=== PATIENT | female | born 1940 | race Caucasian/White ===

== ENCOUNTER 2018-05-20 22:59 | Observation (INO) ==
[2018-05-20] MEDS ORDERED: NS 1,000 ML IV ONE (23:05)
[2018-05-20 23:40] LABS: BASO# 0.13 X1000 (0.0-0.2); BASO% 1.6 % (0.0-0.8); EOS# 0.26 X1000 (0.0-0.7); EOS% 3.2 % (0.0-10.0); HEMATOCRIT 38.8 % (37.0-47.0); HEMOGLOBIN 12.8 g/dL (12.0-16.0); LYMPH# 3.26 X1000 (1.2-3.4); LYMPH% 40.2 % (20.5-51.1); MCH 30.3 PG (27-31); MCV 91.9 FL (81-99); MONO% 9.9 % (1.7-9.3); MPV 11.5 FL (7.4-10.4); NEUT# 3.66 X1000 (1.4-6.5); NEUT% 45.1 % (42.2-75.2); PLT 298 X1000 (130-400); RBC 4.22 XMIL (4.2-5.4); RDW 12.5 % (11.5-14.5); WBC 8.11 X1000 (4.8-10.8)
[2018-05-21 00:12] LABS: BILIRUBIN URINE NEGATIVE (NEGATIVE); BLOOD URINE NEGATIVE (NEGATIVE); CLARITY CLEAR (CLEAR); COLOR YELLOW; GLUCOSE URINE NEGATIVE (NEGATIVE); KETONE URINE NEGATIVE (NEGATIVE); LEUKOCYTES URINE TRACE (NEGATIVE); NITRITE URINE NEGATIVE (NEGATIVE); PROTEIN URINE NEGATIVE (NEGATIVE); SP GRAVITY URINE 1.015; UROBILINOGEN URINE NORMAL
[2018-05-21 00:13] LABS: CALCIUM 9.7 mg/dL (8.8-10.2); CREATININE 1.3 mg/dL (0.5-0.9); POTASSIUM 4.8 mmol/L (3.5-5.1)
[2018-05-21 00:15] LABS: UR AMPHETAMINES QUAL NONE DETECTED (NONE DETECT); UR BARBITUATES QUAL NONE DETECTED (NONE DETECT); UR BENZODIAZEPIN QUAL NONE DETECTED (NONE DETECT); UR CANNABINOIDS QUAL NONE DETECTED (NONE DETECT); UR COCAINE QUAL NONE DETECTED (NONE DETECT); UR METHADONE QUAL NONE DETECTED (NONE DETECT); UR METHAMPHETAMINE QUAL NONE DETECTED (NONE DETECT); UR OPIATES QUAL PRESUMPTIVE POSITIVE (NONE DETECT); UR OXYCODONE QUAL NONE DETECTED (NONE DETECT); UR PCP QUAL NONE DETECTED (NONE DETECT); UR PROPOXYPHENE QUAL NONE DETECTED (NONE DETECT); UR TCA QUAL NONE DETECTED (NONE DETECT)
[2018-05-21 00:18] LABS: URINE BACTERIA 2+ /HFP; URINE EPITHELIAL CELLS <10 /HPF (<10); URINE WBC <10 /HPF (<10)
[2018-05-21 00:19] LABS: URINE SOURCE CLEAN CATCH
--- NOTE | 2018-05-21 01:44 | EKG Report ---
Test Performed on : 05/21/2018 00:16:35 AM Test Reason : AMS Blood Pressure : / mmHG Vent. Rate : 069 BPM Atrial Rate : 069 BPM P-R Int : 154 ms QRS Dur : 092 ms QT Int : 414 ms P-R-T Axes : 072 043 -30 degrees QTc Int : 443 ms Normal sinus rhythm. Minimal voltage criteria for LVH, may be normal variant T wave abnormality, consider inferior ischemia Abnormal ECG When compared with ECG of 08-APR-2018 06:53, No significant change was found Unconfirmed Result
[2018-05-21] MEDS ORDERED: ZOFRAN IV PRN (01:51)
[2018-05-21] MEDS ORDERED: NS 1,000 ML IV ONE ×2 (01:51→15:28)
--- NOTE | 2018-05-21 01:59 | PROVIDER DOCUMENTATION ---
This chart was entered by Anthony Pederson Scribe, acting as scribe for Gail Mancilla MD. HPI-General Adult - General Stated Complaint: AMS Time Seen by Provider: 05/20/18 23:03 Source: EMS Unable to obtain history due to:: altered Allergies/Adverse Reactions: Patient Allergies Allergy/AdvReac Type Severity Reaction Status Date / Time No Known Allergies Allergy Verified 05/20/18 23:29 Home Medications: Home Medication List Medication Instructions Recorded Confirmed Last Taken Type Citalopram [Celexa] 20 mg PO DAILY 12/21/16 05/20/18 04/06/18 History Montelukast [Singulair] 10 mg PO DAILY 12/21/16 05/20/18 04/06/18 History Aspirin [Aspir-Low] 81 mg PO DAILY 04/07/18 05/20/18 04/07/18 History Bisoprolol [Zebeta] 5 mg PO DAILY 04/07/18 05/20/18 04/06/18 History Lamotrigine [Lamictal] 150 mg PO DAILY 04/07/18 05/20/18 04/06/18 History Losartan [Cozaar] 50 mg PO DAILY 04/07/18 05/20/18 04/06/18 History Pregabalin [Lyrica] 75 mg PO DAILY 04/07/18 05/20/18 04/06/18 History Amantadine HCl [Amantadine] 1 tab PO DAILY 05/20/18 05/20/18 Unknown History Hydrocodone Bit/Acetaminophen 1 tab PO TID 05/20/18 05/20/18 Unknown History [Hydrocodon-Acetaminophn 10-325] - History of Present Illness -Gen Adult Nature of Presenting Problems: EMS reports a call came out from a neighbor of pt that the pt is more confused than normal. EMS reports a smell of weed from the apartment the pt came from but did not see any use. On arrival pt confused oriented to place but not self or time, speech clear no complaints Review of Systems - Adult - REVIEW OF SYSTEMS - ADULT ROS:: unobtainable per condition Constitutional: denies: chills, fever Past History - Adult - PAST MEDICAL HISTORY-ADULT Review of Records: reports: Old Records Reviewed, Nursing Assessment Review, Medications Reviewed Major Childhood Illnesses: reports: denies history Cardiovascular: reports: denies history Respiratory: reports: denies history Gastrointestinal: reports: denies history Obstetrical/Gynecological: reports: denies history Genitourinary: reports: denies history Musculoskeletal: reports: denies history Neurological: reports: denies history Endocrine/Immune: reports: denies history Other Conditions: reports: denies history - PRIOR SURGERIES/PROCEDURES Surgical/Procedure History: reports: other (open heart surgery 2000) - IMMUNIZATION STATUS Childhood Immunizations: See Nurse Assessment Flu Vaccine: See Nurse Assessment - FAMILY HISTORY Family History: reviewed, not pertinent - SOCIAL HISTORY Smoking: cigarettes Substance Use: alcohol Alcohol Use Frequency: occasionally Living Situation: family Physical Exam-General - PHYSICAL EXAM-ADULT Initial Vital Signs Reviewed: Yes - CONSTITUTIONAL General Appearance: alert, no apparent distress, other (A&O to place only) - EYES Eyes: PERRL/EOMI, pink conjunctivae - HEAD, EARS, NOSE, MOUTH & THROAT HENMT: moist mucous membranes, normal ENT inspection, TMs normal, pharynx normal - NECK Neck: non-tender, full range of motion, supple - RESPIRATORY Respiratory: lungs clear, normal breath sounds, no pleuratic chest pain, no respiratory distress - CARDIOVASCULAR Cardiovascular: normal peripheral pulses, regular rate, rhythm - GASTROINTESTINAL (ABDOMEN) Abdominal Exam: normal bowel sounds, soft - MUSCULOSKELETAL Back Exam: no CVA tenderness, no vertebral tenderness Extremity: normal range of motion, non-tender, no pedal edema - SKIN Integumentary: normal color, normal turgor, warm/dry - NEUROLOGIC Neurologic: grossly normal, no motor/sensory deficits - PSYCHIATRIC Psych/Mental Status: negative: normal mood/affect (very pleasant but confused), normal thought content, normal thought process, oriented x 3 Progress - PLAN OF CARE/RESULTS Progress/Plan/Lab Results: Vital Signs - 8 hr 05/20/18 22:59 05/21/18 01:15 Temperature 96.5 F L Pulse Rate 67 70 Respiratory Rate 18 18 Blood Pressure 212/105 181/72 O2 Sat by Pulse Oximetry 99 97 Laboratory Results - last 24 hr 05/20/18 05/20/18 05/20/18 23:10 23:10 23:10 WBC 8.11 RBC 4.22 Hgb 12.8 Hct 38.8 MCV 91.9 MCH 30.3 MCHC 33.0 RDW Std Deviation 12.5 Plt Count 298 MPV 11.5 H Immature Gran % (Auto) 0.0 Neut % (Auto) 45.1 Lymph % (Auto) 40.2 Mcclain % (Auto) 9.9 H Eos % (Auto) 3.2 Baso % (Auto) 1.6 H Immature Gran # (Auto) 0.00 Neut # (Auto) 3.66 Lymph # (Auto) 3.26 Mcclain # (Auto) 0.80 H Eos # (Auto) 0.26 Baso # (Auto) 0.13 Sodium 132 L Potassium 4.8 Chloride 96 L Carbon Dioxide 22 L Anion Gap 15 BUN 26 H Creatinine 1.3 H Estimated GFR/1.73 m2 40 BUN/Creatinine Ratio 20 Glucose 93 Calculated Osmolality 269 Calcium 9.7 Troponin T < 0.010 Urine Source Urine Color Urine Clarity Urine pH Ur Specific [place] Urine Protein Urine Ketones Urine Blood Urine Nitrite Urine Bilirubin Urine Urobilinogen Urine Microscopic RBC Urine WBC Urine Microscopic WBC Ur Epithelial Cells Urine Bacteria Urine Glucose Urine Opiates Screen Ur Oxycodone Screen Urine Methadone Screen U Propoxyphene Qual Ur Barbituates Screen Ur Tricyclics Screen Ur Phencyclidine Scrn Ur Amphetamines Screen U Methamphetamines Scrn U Benzodiazepines Scrn Urine Cocaine Screen U Cannabinoids Screen Plasma/Serum Ethyl Alc 05/20/18 05/20/18 05/20/18 23:10 23:20 23:20 WBC RBC Hgb Hct MCV MCH MCHC RDW Std Deviation Plt Count MPV Immature Gran % (Auto) Neut % (Auto) Lymph % (Auto) Mcclain % (Auto) Eos % (Auto) Baso % (Auto) Immature Gran # (Auto) Neut # (Auto) Lymph # (Auto) Mcclain # (Auto) Eos # (Auto) Baso # (Auto) Sodium Potassium Chloride Carbon Dioxide Anion Gap BUN Creatinine Estimated GFR/1.73 m2 BUN/Creatinine Ratio Glucose Calculated Osmolality Calcium Troponin T Urine Source CLEAN CATCH Urine Color YELLOW Urine Clarity CLEAR Urine pH 5.0 Ur Specific [place] 1.015 Urine Protein NEGATIVE Urine Ketones NEGATIVE Urine Blood NEGATIVE Urine Nitrite NEGATIVE Urine Bilirubin NEGATIVE Urine Urobilinogen NORMAL Urine Microscopic RBC Not Reportable Urine WBC TRACE A Urine Microscopic WBC <10 Ur Epithelial Cells <10 Urine Bacteria 2+ Urine Glucose NEGATIVE Urine Opiates Screen PRESUMPTIVE POSITIVE A Ur Oxycodone Screen NONE DETECTED Urine Methadone Screen NONE DETECTED U Propoxyphene Qual NONE DETECTED Ur Barbituates Screen NONE DETECTED Ur Tricyclics Screen NONE DETECTED Ur Phencyclidine Scrn NONE DETECTED Ur Amphetamines Screen NONE DETECTED U Methamphetamines Scrn NONE DETECTED U Benzodiazepines Scrn NONE DETECTED Urine Cocaine Screen NONE DETECTED U Cannabinoids Screen NONE DETECTED Plasma/Serum Ethyl Alc Orders Category Date Time Status Admit - [facility] Routine AdmDCTranf 05/21/18 01:51 Active Call Admitting on Arrival AT ADMISSION Care 05/21/18 01:52 Active IV Insertion ORDERED Care 05/20/18 23:03 Completed Neurological Check Q2H Care 05/21/18 01:51 Active Nursing- Obtain EKG once Care 05/20/18 23:03 Active Saline Loc DIRECTED Care 05/21/18 01:51 Active Vital Signs Order ROUTINE Care 05/21/18 01:51 Active Z-Document. for Tele Applied ORDERED Care 05/21/18 01:53 Active CHEST-1 VIEW [RAD] Stat Exams 05/20/18 23:[address] HEAD W/O CONTRAST [CT] Stat Exams 05/20/18 23:03 Taken MRI BRAIN W/WO CONTRAST [MRI] Stat Exams 05/21/18 07:00 Ordered ALCOHOL BLOOD Stat Lab 05/20/18 23:10 Completed BASIC METABOLIC PANEL [CHEM] Stat Lab 05/20/18 23:10 Completed CBC WITH DIFF [HEME] Stat Lab 05/20/18 23:10 Completed TROPONIN T Stat Lab 05/20/18 23:[address] W/POSS RFLX CULT [URINALYSIS] Stat Lab 05/20/18 23:20 Completed URINE CULTURE [RM] Routine Lab 05/21/18 00:19 Ordered [address] DRUG SCREEN [address] Stat Lab 05/20/18 23:20 Completed 0.9% Sodium Chloride Inj [Ns] 1,000 ml Med 05/21/18 01:51 Active IV 75 mls/hr 0.9% Sodium Chloride Inj [Ns] 1,000 ml Med 05/20/18 23:05 Discontinued IV 999 mls/hr Ondansetron [Zofran] Med 05/21/18 01:51 Ordered 4 mg IV Q4H PRN PRN Oxygen Device Routine Oth 05/21/18 01:52 Active Telemetry [OM.EQ] Routine Oth 05/21/18 01:51 Active EKG [EKG] Stat Ther 05/20/18 23:03 Draft Transfer/Admit Order [TRANSFER] Routine Transfer 05/21/18 01:54 Ordered AMS will further evaluate for causes including but not limited to CVA, tia, ACS , arrythmia, uti, pna, other infectious process, electrolyte imbalance, ingestion Result Diagrams: 05/20/18 23:10 05/20/18 23:10 - REASSESSMENT Reassessment #1 Status: improving (speech clear and pt alert and oriented. Family at bedside states pt's confusion and change in speech was sudden onset in that she was speaking then had garbled speech and appeared to not be able to "get the words out". no noted focal weakness or facial droop. Back to baseline now per family. Family's report concerning for possible TIA. ED work up unremarkable. Will admit for further evaluation and treatment. Discussed case wtih Dr. Hernandez, Hospitalist, who will see and admit pt.) - EKG 1 Time of EKG reading by physician:: 00:16 EKG Read and Signed by:: Gail Mancilla EKG Interpretation (*Must complete 3 of following elements*): Abnormal Rate: 69 Rhythm: NSR QRS: LVH - XRAY 1 XRAY Study: Chest Impression: See EMR Report - CT/MRI 1 MRI Study: Head Impression: Normal (No acute findings) - CONSULTS/PCP/HOSPITALIST Notification #1 *Consult/PCP/Hospitalist*: Hospitalist-Dr Hernandez Time Discussed: 01:50 Reason/Comments: admission Consult Disposition: Admit (accepts) Departure - Departure Date of Disposition Decision: 05/21/18 Time of Disposition Decision: 01:56 DIAGNOSIS: TIA (transient ischemic attack) Disposition: ADMITTED INPATIENT 09 Certified Medical Emergency: Emergent Condition: Good Referrals and Follow-Ups: Rajat Cordova MD [Primary Care Provider] - - Critical Care Note This patient required my direct & personal management of CC.: No Attestation - Physician/ JOHN Attestation Patient care was provided by Advanced Practice Provider:: No The physician spent face to face time with patient:: Yes Advanced Practice Provider documentation review:: Supervising physician onsite and consulted in the evaluation and care of this patient. The physician did have a face to face encounter with the patient. This chart was documented by the indicated scribe, (Anthony Pederson, Jose Guadalupe) and accurately reflects the services I performed and decisions made by me, Gail Mancilla MD, as attested by the provider's signature.
--- NOTE | 2018-05-21 07:00 | Diag Imaging Result Doc PS360 ---
EXAM: CT HEAD W/O CONTRAST - 05/20/2018 HISTORY: AMS TECHNIQUE: CT head without contrast COMPARISON: None. FINDINGS: There are atrophic changes and chronic appearing microvascular ischemic changes. There are chronic appearing lacunar infarcts and deep white matter on the left. There is no indication of recent infarct, although acute infarcts may not be immediately visible. There is no evidence of intracranial hemorrhage, mass effect, or midline shift. There is no evidence of skull fracture. IMPRESSION: Atrophic changes and chronic microvascular ischemic changes. No visible acute intracranial abnormality. The civil transportation engineer radiologist provided preliminary results at 12:24 AM on 05/21/2018. This exam was performed using automated exposure control, adjustment of mA or kV according to patient size, and/or use of iterative reconstruction technique. Electronically signed by Edd Keith 05/21/2018 6:58 AM
--- NOTE | 2018-05-21 07:47 | Diag Imaging Result Doc PS360 ---
EXAM: CHEST-1 VIEW - 05/20/2018 HISTORY: AMS TECHNIQUE: One view chest COMPARISON: 04/08/2018 FINDINGS: Heart size is normal. There are sternal wires from previous surgery and transvenous cardiac pacemaker again seen. 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 There is mild atelectasis or infiltrate at the medial left base. The remainder of the lungs appear essentially clear of acute changes. There is no pleural effusion or pneumothorax identified. IMPRESSION: Mild atelectasis or infiltrate at medial left base. Electronically signed by Edd Keith 05/21/2018 7:44 AM
[2018-05-21] MEDS ORDERED: NORCO-10 PO PRN (08:26)
[2018-05-21] MEDS ORDERED: SYMMETREL PO SCH (09:00)
[2018-05-21] MEDS ORDERED: ASPIRIN EC PO SCH (09:00)
[2018-05-21] MEDS ORDERED: CELEXA PO SCH (09:00)
[2018-05-21] MEDS ORDERED: ZEBETA PO SCH (09:00)
[2018-05-21] MEDS ORDERED: COZAAR PO SCH (09:00)
--- NOTE | 2018-05-21 09:57 | HISTORY AND PHYSICAL ---
PRIMARY CARE PHYSICIAN: Dr. Cordova. CHIEF COMPLAINT: Increased confusion, with slurred and garbled speech. HISTORY OF PRESENTING ILLNESS: This is a 77-year-old female, who presented to [facility] ER via EMS after a call came from a neighbor that the patient was more confused than normal. When she arrived, she was confused, with orientation to place, but not self or time. Speech was clear on arrival. The patient states that she remembers the incident yesterday and that she began having difficulty "finding words", but denied any slurred speech or facial drooping. Family was at bedside in the emergency room and confirmed that the change in speech was a sudden onset, that she had been speaking with them and then all the sudden appeared to not be able to get her words out and her speech became garbled. She is now back to baseline, but has been admitted for further evaluation and treatment. PAST MEDICAL HISTORY: Coronary artery disease, ME, hypertension, ETOH abuse, asthma, hyperlipidemia, systolic congestive heart failure, chronic kidney disease stage 3, anxiety, and depression. PAST SURGICAL HISTORY: Quadruple bypass, heart stent placement, pacemaker, bilateral cataract, hysterectomy, appendectomy, cholecystectomy, and a left ankle surgery. FAMILY HISTORY: Her father had coronary artery disease and an ME. SOCIAL HISTORY: She currently lives alone, was a 1 to 2 pack a day smoker until her heart attack. She states she quit in 2000. She drinks 1 to 2 beers nightly, but used to be a heavy drinker. She denies any illicit drug use. ALLERGIES: She has no known drug allergies. HOME MEDICATIONS: Amantadine 100 mg p.o. b.i.d. Aspirin 81 mg p.o. daily. Bisoprolol 10 mg p.o. daily. Celexa 20 mg p.o. daily. Hydrocodone 10 1 p.o. q.6 hours p.r.n. Lamictal 150 mg p.o. at bedtime. Cozaar 50 mg p.o. daily. Lyrica 75 mg p.o. at bedtime. Risperidone 0.5 mg p.o. at bedtime. DIAGNOSTIC DATA: White blood cell count of 8.11, hemoglobin 12.8, hematocrit 38.8, platelets 298,000. Sodium 132, potassium 4.8, chloride 96, CO2 22, BUN of 26, creatinine 1.3, glucose 93. Troponin less than 0.010. Urinalysis was negative except for 2+ bacteria. Urine drug screen was presumptive positive for opiates. Serum alcohol level showed none detected. Chest x-ray showed mild atelectasis or infiltrate at the medial left base. CT of the head showed atrophic changes and chronic microvascular ischemic changes, no visible acute intracranial abnormality. An EKG showed normal sinus rhythm at 69. REVIEW OF SYSTEMS: She denied any fever, chills, blurred vision, dizziness, chest pain, coughing, or shortness of breath. She states she does had difficulty finding her words. Denied any abdominal pain, constipation, diarrhea, burning or hurting with urination. PHYSICAL EXAMINATION: VITALS: On arrival, she had a temperature of 96.5 degrees, pulse 67, respirations 18, blood pressure was 212/105, saturating 99% on room air. Currently her blood pressure is down to 170/82. GENERAL: This is a 77-year-old female who is lying in the bed, but answers questions appropriately at this time. HEENT: Normocephalic and atraumatic. Normal ENT inspection. Oropharynx and nares are clear. Eyes, pupils are equal, round, and reactive to light and accommodation. Extraocular movements are intact. NECK: Normal inspection. Normal range of motion. LUNGS: Clear to auscultation bilaterally with equal lung expansion and chest wall movement. HEART: Regular rate and rhythm. No murmurs, rubs, or gallops. ABDOMEN: Soft, nontender, nondistended. Bowel sounds are present x4 quadrants. MUSCULOSKELETAL: She has 5/5 strength x4 extremities. NEUROLOGICAL: Cranial nerves 2-12 appear grossly intact, with no deficits at this time. ASSESSMENT: 1. Transient ischemic attack versus cerebrovascular accident. 2. Accelerated hypertension. 3. Mild hyponatremia. 4. Ethanol abuse. PLAN: She has been admitted to the medical unit at [place], placed on telemetry, O2 per protocol. Neuro checks q.2h. for 24 hours. Check a urine culture. We are going to obtain an MRI of the brain with and without contrast today. Continue her home medications as previously identified. She is on normal saline at 75 mL an hour, Zofran 4 mg IV q.4 hours p.r.n. We will also check carotid Doppler and an echocardiogram today. Further orders after being seen by attending. Dictated by BARTOLOME Prieto for Matthias Hernandez MD cc: BARTOLOME Prieto MD Dr. Khan
--- NOTE | 2018-05-21 15:34 | Extremity Venous Study ---
EXAM: Carotid Ultrasound - 05/21/2018 HISTORY: tia vs cva TECHNIQUE: Carotid flow studies COMPARISON: None. FINDINGS: There is atherosclerotic plaquing at the common carotid, carotid bulb, and internal carotid on the right. Maximal systolic velocity right internal carotid is 143 cm/s, maximum diastolic velocity is 22 cm/s. The right internal carotid to common carotid systolic velocity ratio is 2.6. The flow velocities and ratio are consistent with 40-59% stenosis at the right internal carotid. There is atherosclerotic plaquing of the common carotid, carotid bulb, and internal carotid artery on the left. Maximal systolic velocity of the left internal carotid is 74 cm/s, maximum diastolic velocity is 16 cm/s. The left internal to common carotid systolic velocity ratio is 1.1. The flow velocities and ratio are consistent with 0-39% stenosis at the left internal carotid. The right vertebral demonstrates antegrade flow. The direction of flow in the left vertebral is ambiguous, although is possible that this artifactual. 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 0-39% stenosis at left internal carotid. Electronically signed by Edd Keith 05/21/2018 3:31 PM
[2018-05-21 17:50] VITALS: BP 200/91
[2018-05-21] MEDS ORDERED: LAMICTAL PO SCH (21:00)
[2018-05-21] MEDS ORDERED: LYRICA PO SCH (21:00)
[2018-05-21] MEDS ORDERED: RISPERDAL PO SCH (21:00)
--- NOTE | 2018-05-22 04:58 | HISTORY AND PHYSICAL ---
HISTORY AND PHYSICAL ADDENDUM: The patient presented with confusion and dysarthria. She has no history of CAD. She has a history of alcohol use, though. In any case, she came in for evaluation, but her dysarthria, facial drooping, all that has improved. We attempted an MRI, but she has a pacemaker, so that is not an option. Carotid and echo are pending. She is not clear that she has had a stroke. I am going to do a head CT repeat tomorrow. She has a nonfocal exam, although she does have some memory deficits, but that may be related to other things. We will continue to follow closely. In any case, we will follow. If her workup is negative, anticipate discharge tomorrow. cc: Matthias Hernandez MD
== END 2018-05-21 18:11 | disposition home or self-care (01) ==
LOC: EDBD → P.MEDSURG 22:59 → P.ED 22:59 → P.MEDSURG 05-21 04:10
PROVIDERS: ATTEND Internal Medicine
CPT/HCPCS: 70450; 71010; 71045; 80048; 80104; 80301; 80305; 80307; 80320; 81001; 82055; 84484; 85025; 87088; 93005; 93306; 93880; 96360; 96361; 99285; A9270; G0431; G0434; G0477; G0480; G6040; J7030